=== PATIENT | male | born 1955 | race Caucasian/White ===

== ENCOUNTER 2021-11-12 16:58 | Emergency (ER) | payer OTHER, MEDICARE ==
[~2021-11-12] VITALS: Ht 182.9 cm; Wt 136.1 kg
[~2021-11-12 16:58] MED LIST: ALDACTONE50 MG PO; ASPIR 8181 MG PO; ATENOLOL25 MG PO; FELODIPINE ER10 MG PO; GLUCOPHAGE500 MG PO; GUANFACINE HCL1 MG PO; HUMALOG100 UNIT/2 SUB-Q; HYDROCHLOROTHIA50 MG PO; IRBESARTAN75 MG PO; SIMVASTATIN10 MG PO; TOUJEO MAX300 UNIT/1 SQ
[2021-11-12] MEDS ORDERED: ALFUZOSIN HCL10 MG PO (18:30)
[2021-11-12] MEDS ORDERED: METOPROLOL SUCC50 MG (18:30)
[2021-11-12] MEDS ORDERED: ALLOPURINOL100 MG PO (18:30)
[2021-11-12] MEDS ORDERED: FINASTERIDE5 MG PO (18:30)
[2021-11-12] MEDS ORDERED: TORSEMIDE20 MG PO (18:31)
[2021-11-12] MEDS ORDERED: IRBESARTAN150 MG PO (18:31)
--- NOTE | 2021-11-13 17:52 | EKG ---
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
== END 2021-11-12 23:16 | disposition short-term general hospital (02) ==
LOC: ED 16:58
DX: S06.6X0A Traumatic subarachnoid hemorrhage without loss of consciousness, initial encounter (principal); M54.2 Cervicalgia; I12.0 Hypertensive chronic kidney disease with stage 5 chronic kidney disease or end stage renal disease; E11.22 Type 2 diabetes mellitus with diabetic chronic kidney disease; N18.6 End stage renal disease; Z99.2 Dependence on renal dialysis; Z87.891 Personal history of nicotine dependence; Z88.8 Allergy status to other drugs, medicaments and biological substances; Z79.899 Other long term (current) drug therapy; Z79.4 Long term (current) use of insulin; W05.0XXA Fall from non-moving wheelchair, initial encounter
CPT/HCPCS: 36415; 70450; 72125; 80053; 81001; 85025; 85610; 87088; 87502; 93005; 93010; 96365; 96375; 99285-25; C9803; J0696; J2270; J2405; J7060; U0003

== ENCOUNTER 2023-03-13 00:17 | Emergency (ER) | payer MEDICARE, OTHER ==
[~2023-03-13] VITALS: Ht 182.9 cm; Wt 136.1 kg
[~2023-03-13 00:17] MED LIST changes: +ALFUZOSIN HCL10 MG PO; +ALLOPURINOL100 MG PO; +FINASTERIDE5 MG PO; +IRBESARTAN150 MG PO; +METOPROLOL SUCC50 MG; +TORSEMIDE20 MG PO
[2023-03-13 00:40] LABS: BASOPHILS 0.9 % (0-2); HEMATOCRIT 31.9 % (35.0-50.0); LYMPHOCYTES 8.4 % (24-44); MCH 32.7 (27-36); MCHC 34.4 g/dl (30-36); MCV 94.8 fl (81-99); MONOCYTES 7.5 % (0-12); NEUTROPHILS 77.2 % (39-80); PLATELET COUNT 270 K/uL (140-440); RBC 3.37 M/ul (4.3-5.7); RDW 13.8 (10.5-15.0)
[2023-03-13 01:05] LABS: ALBUMIN 3.4 g/dL (3.4-5.0); ALBUMIN/GLOBULIN RATIO 0.89 (1.1-2.4); ANION GAP 17.6 (7-21); BILIRUBIN, TOTAL 0.3 ng/dL (0.2-1.0); BUN/CREATININE RATIO 5.95 (6.0-28.6); CALCIUM 9.5 mg/dL (8.5-10.1); CREATININE, SERUM 8.06 mg/dL (0.70-1.30); MAGNESIUM 2.1 mg/dL (1.8-2.4); POTASSIUM 4.6 mmol/L (3.5-5.1); PROTEIN, TOTAL 7.2 g/dL (6.4-8.2)
[2023-03-13 02:10] VITALS: BP 113/56
--- NOTE | 2023-03-13 05:53 | EKG ---
[facility] [address] 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
== END 2023-03-13 02:15 | disposition short-term general hospital (02) ==
LOC: ED 00:17
PROVIDERS: Internal Medicine
DX: R07.89 Other chest pain (principal); I12.0 Hypertensive chronic kidney disease with stage 5 chronic kidney disease or end stage renal disease; E11.22 Type 2 diabetes mellitus with diabetic chronic kidney disease; N18.6 End stage renal disease; Z87.891 Personal history of nicotine dependence; Z88.8 Allergy status to other drugs, medicaments and biological substances; Z79.899 Other long term (current) drug therapy; Z79.84 Long term (current) use of oral hypoglycemic drugs; Z79.82 Long term (current) use of aspirin; Z79.4 Long term (current) use of insulin; Z11.52 Encounter for screening for COVID-19
CPT/HCPCS: 36415; 71045; 80053; 83735; 83880; 84484; 85025; 93005; 93010; 99285-25; A9270; C9803; U0002